=== PATIENT | female | born 2005 | race Caucasian/White ===

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

== ENCOUNTER → 2025-04-22 | Outpatient (REF) | payer OTHER, MEDICAID, MEDICARE | LOC: M SFHCDERM 17:59 | PROVIDERS: ATTEND Advanced Practice Midwife | DX: Z12.4 Encounter for screening for malignant neoplasm of cervix (principal) ==